=== PATIENT | female | born 1995 | race Caucasian/White ===

== ENCOUNTER 2021-03-12 08:58 | Emergency (ER) | payer OTHER ==
[~2021-03-12] VITALS: Ht 160 cm; Wt 104.3 kg
[2021-03-12] MEDS ORDERED: TOPAMAX100 MG PO (09:06)
[2021-03-12] MEDS ORDERED: ZOLOFT50 M1 PO (09:06)
[2021-03-12] MEDS ORDERED: PHENTERMINE HCL15 MG (09:07)
[2021-03-12 09:39] LABS: URINE BILIRUBIN NEGATIVE (Negative); URINE BLOOD 1+ (Negative); URINE CLARITY CLEAR; URINE COLOR YELLOW; URINE GLUCOSE-RANDOM NEGATIVE (Negative); URINE KETONES NEGATIVE (Negative); URINE LEUKOCYTES NEGATIVE (Negative); URINE NITRITE NEGATIVE (Negative); URINE PROTEIN NEGATIVE (Negative); URINE SPECIFIC GRAVITY 1.025 (1.005-1.030); URINE UROBILINOGEN 0.2 E.U./dl (0.2-1.0)
[2021-03-12 09:56] LABS: BACTERIA 1-9 Few /HPF (None Seen); CASTS None Seen /LPF (None Seen); CRYSTALS None Seen /LPF (None Seen); MUCUS None Seen strn/LPF (None Seen); SQUAMOUS 4-10 Moderate /LPF (0-3); URINE RBC 3-10 Few /HPF (0-2); URINE WBC 0-5 Rare /HPF (0-5)
[2021-03-12 12:08] LABS: ABSOLUTE EOSINOPHILS 0.1 thou/uL (0.0-0.7); ABSOLUTE LYMPHOCYTES 1.6 thou/uL (0.8-5.3); ABSOLUTE MONOCYTES 0.4 thou/uL (0.0-1.2); BASOPHILS 0.4 %; EOSINOPHILS 0.7 %; HEMATOCRIT 38.3 % (37.0-47.0); HEMOGLOBIN 12.8 gm/dL (12.0-15.0); LYMPHOCYTES 14.3 %; MCH 27.1 pg (26.0-34.0); MCHC 33.4 g/dL (28.0-37.0); MCV 81.1 fL (80.0-100.0); MONOCYTES 3.9 %; MPV 7.9 fl. (7.2-11.1); NUCLEATED RBCS 0 /100WBC; PLATELET COUNT* 411 thou/uL (150-400); POLYS 80.7 %; RBC 4.73 mil/uL (4.20-5.00); RDW-CV 15.4 % (10.5-14.5); WBC 11.2 thou/uL (4.0-11.0)
[2021-03-12 12:18] LABS: CALCIUM 8.6 mg/dL (8.5-10.1); CREATININE 1.3 mg/dL (0.6-1.3); POTASSIUM 3.4 mmol/L (3.5-5.1)
[2021-03-12 12:23] LABS: ALBUMIN 3.6 g/dL (3.4-5.0); TOTAL BILIRUBIN 0.3 mg/dL (<0.1-1.0); TOTAL PROTEIN 8.1 g/dL (6.4-8.2)
[2021-03-12 17:45] VITALS: BP 140/89
== END 2021-03-12 17:45 | disposition home or self-care (01) ==
LOC: M.ERS 08:58
PROVIDERS: Emergency Medicine
DX: R10.84 Generalized abdominal pain (principal); Z88.1 Allergy status to other antibiotic agents; Z88.2 Allergy status to sulfonamides